=== PATIENT | male | born 1965 | race Caucasian/White ===

== ENCOUNTER 2021-10-17 07:09 | Day surgery (SDC) | payer MEDICARE ==
[2021-10-10 15:57] LABS: BASOPHILS # (AUTO) 0.1 X10'3 (0-0.2); BASOPHILS % (AUTO) 0.8 % (0-1); EOSINOPHILS # (AUTO) 0.1 X10'3 (0-0.9); EOSINOPHILS % (AUTO) 1.9 % (0-6); LYMPHOCYTES # (AUTO) 2.3 X10'3 (1.1-4.8); LYMPHOCYTES % (AUTO) 29.5 % (21-51); MEAN CORPUSCULAR HGB CONC 33.7 g/dL (33.0-36.5); MEAN PLATELET VOLUME 7.2 FL (7.4-10.4); MONOCYTES # (AUTO) 0.9 X10'3 (0-0.9); MONOCYTES % (AUTO) 12.1 % (2-12); NEUTROPHILS # (AUTO) 4.3 X10'3 (1.8-7.7); NEUTROPHILS % (AUTO) 55.7 % (42-75); PRE OP HEMOGLOBIN 13.5 g/dL (14.0-17.9); PRE OP PLATELET COUNT 300 X10'3 (140-440); RED BLOOD COUNT 4.65 X10'6 (4.70-6.10); RED CELL DISTRIBUTION WIDTH 13.5 % (11.5-14.5)
[2021-10-10 16:29] LABS: ALBUMIN 3.8 G/DL (3.4-5.0); ALBUMIN/GLOBULIN RATIO 1.2 (1.1-1.5); ALKALINE PHOSPHATASE 78 IU/L (46-116); BLOOD UREA NITROGEN 15 MG/DL (7-18); BUN/CREATININE RATIO 18.5 (5.4-32.0); CALCIUM 9.2 MG/DL (8.5-10.1); CHLORIDE 102 MMOL/L (99-107); CREATININE 0.81 MG/DL (0.60-1.10); PRE OP ALT 31 U/L (30-65); PRE OP ANION GAP 10 (8-16); PRE OP AST 18 U/L (10-37); PRE OP BILIRUB, TOTAL 0.2 MG/DL (0.0-1.0); PRE OP GLUCOSE 86 MG/DL (70-104); PRE OP POTASSIUM 4.5 MMOL/L (3.4-5.1); PRE OP SODIUM 139 MMOL/L (135-145); TOTAL CARBON DIOXIDE 27.4 MMOL/L (24-32); TOTAL PROTEIN 6.9 G/DL (6.4-8.2); eGFR > 90 ML/MIN
[~2021-10-17] VITALS: Ht 175.3 cm; Wt 110.3 kg
[2021-10-17] VITALS (9 sets, daily range): BP systolic 114–131; BP diastolic 72–83
[~2021-10-17 07:09] MED LIST: BUPR1PAT20 TOP; CHOL200074 PO; DILT-36 PO; DULO60CA65 PO; HYDR12.55 PO; LACT1CAP65 PO; LISI10TA27 PO; ROSU10TA28 PO; cefazolin/dext.iso 2gm/50ml IV ONE; famotidine 20mg tablet PO ONE; ringers solution, lacted 1,000 ML IV SCH
[2021-10-17] MEDS ORDERED: hydrALAZINE 20mg/ml inj. IV PRN (08:00)
[2021-10-17] MEDS ORDERED: morphine 4 MG/ML inj SYRINge IV PRN (08:00)
[2021-10-17] MEDS ORDERED: labetalol 20mg/4ml (5mg/ml) syringe IV PRN (08:00)
[2021-10-17] MEDS ORDERED: fentaNYL/PF 50MCG/1 ML 2ML syringe IV PRN ×2 (08:00)
[2021-10-17] MEDS ORDERED: morphine 2 MG/ML inj. syringe IV PRN (08:00)
[2021-10-17] MEDS ORDERED: ondansetron/PF 4mg/2ml inj IV PRN (08:00)
[2021-10-17] MEDS ORDERED: ringers solution, lacted 1,000 ML IV SCH (08:00)
[2021-10-17] MEDS ORDERED: LIDOcaine 0.5% (5mg/ml) 50ml vial ONE (08:33)
[2021-10-17] MEDS ORDERED: BUPIVAcaine 0.5% inj/PF 30 ML ONE (10:52)
[2021-10-17] MEDS ORDERED: BUPIVAcaine 0.5% inj/PF 30 ml vial IJ ONE (11:30)
[2021-10-17] MEDS ORDERED: propofol inj 20 ML IV ONE (11:59)
[2021-10-17] MEDS ORDERED: ketorolac trometh. 30mg/ml inj. ONE (12:00)
--- NOTE | 2021-10-17 12:15 | NUR ---
Received from OR via [facility], accompanied by Anesthesiologist DR SANDS and report given by Anesthesiologist AND GROUP HOME SUPERVISOR. PT DROWSY, DENIES PAIN. LEFT HAND/WRIST W/HARVEY WRAP COVERING INCISION/DRSG CDI, LEFT ELBOW W/HARVEY WRAP COVERING INCISION/DRSG CDI. Addendum: 10/17/21 at 1350 by Edwige Vega RN Amended: Links added.
--- NOTE | 2021-10-17 13:25 | NUR ---
PT UP AND ABLE TO AMBULATE SAFELY, D/C INSTRUCTIONS GIVEN AND GONE OVER W/PT WHO VERBALIZED UNDERSTANDING. PT D/CD TO HOME VIA W/C TO PRIVATE VEHICLE W/O INCIDENT. Addendum: 10/17/21 at 1348 by Edwige Vega RN Amended: Links added.
== END 2021-10-17 13:25 | disposition home or self-care (01) ==
LOC: PAS 07:09
PROVIDERS: ATTEND Orthopaedic Surgery Hand Surgery
DX: G56.02 Carpal tunnel syndrome, left upper limb (principal); G56.22 Lesion of ulnar nerve, left upper limb; G89.29 Other chronic pain; F41.9 Anxiety disorder, unspecified; F32.A Depression, unspecified; E78.5 Hyperlipidemia, unspecified; G47.30 Sleep apnea, unspecified; I10 Essential (primary) hypertension; E66.9 Obesity, unspecified; Z68.35 Body mass index [BMI] 35.0-35.9, adult; Z20.822 Contact with and (suspected) exposure to COVID-19; Z79.899 Other long term (current) drug therapy; Z98.890 Other specified postprocedural states; Z82.49 Family history of ischemic heart disease and other diseases of the circulatory system; Z83.6 Family history of other diseases of the respiratory system
CPT/HCPCS: 29848; 36415; 64718; 80053; 82948; 85025; J1885; J2704; J3490; J7030; J7120; S0020; U0003; U0005; Z7506; Z7512; A4215; A6449; A7000; J0690